=== PATIENT | male | born 1955 | race Caucasian/White ===

== ENCOUNTER 2021-12-20 14:20 | Outpatient (CLI) | payer MEDICARE, OTHER | END 2021-12-20 14:21 | disposition short-term general hospital (02) | LOC: EMS 14:20 | DX: S61.213A Laceration without foreign body of left middle finger without damage to nail, initial encounter (principal); W29.8XXA Contact with other powered hand tools and household machinery, initial encounter; Y92.009 Unspecified place in unspecified non-institutional (private) residence as the place of occurrence of the external cause | CPT/HCPCS: A0425; A0429 ==